=== PATIENT | male | born 1960 | race African-American/Black ===

== ENCOUNTER 2019-01-08 06:29 | Day surgery (SDC) | payer MEDICARE, OTHER ==
[~2019-01-08] VITALS: Ht 180.3 cm; Wt 128.0 kg
[2019-01-08] VITALS (12 sets, daily range): BP systolic 126–163; BP diastolic 79–93; PULSE 60–96; RESP 12–24; Ht 180.3 cm; Wt 128.0 kg
[~2019-01-08 06:29] MED LIST: CEFAZOLIN 2 GM/50 ML (PMX) 50 ML IVPB ONE; SOD CHLORIDE 0.9% 1,000 ML IV SCH
[2019-01-08] MEDS ORDERED: SEVOFLURANE 15 MIN ONE (07:00)
[2019-01-08] MEDS ORDERED: LIDOCAINE 2% (SDV) 5 ML INJ ONE (07:00)
[2019-01-08] MEDS ORDERED: SUCCINYLCHOLINE CHLORIDE 100 MG/5 ML SYG IV ONE (07:00)
[2019-01-08] MEDS ORDERED: AMLO-147 PO (07:24)
[2019-01-08] MEDS ORDERED: HYDR25TA6 PO (07:24)
[2019-01-08] MEDS ORDERED: GLIP10TA14 PO (07:24)
[2019-01-08] MEDS ORDERED: METF-849 PO (07:24)
--- NOTE | 2019-01-08 08:39 | PREAC ---
Date/Time of Note Date/Time of Note DATE: 01/08/19 TIME: 08:35 Anesthesia Eval and Record Evaluation Time Pre-Procedure Interview DATE: 01/08/19 TIME: 08:35 Age 58 Sex male NPO: 8 hrs Preoperative diagnosis Posterior Thoracic abscess Planned procedure I&D posterior thoracic abscess Past Medical History Past Medical History: Includes Cardio: HTN, Dyslipidemia Endo: Diabetes GI: Morbid obesity Surgery & Anesthesia Issues No known issue Meds Anticoagulation: No Beta Lucy within 24 hr: No Reason Beta Lucy not given: Pt. not on B-Lucy Reported Medications Glipizide* (Glipizide*) 10 Mg Tablet, 10 MG PO BID, TAB 01/08/19 Metformin* (Glucophage*) 500 Mg Tab, 500 MG PO WITH BREAKFAST DINNE, #30 TAB 01/08/19 Amlodipine Besylate* (Amlodipine Besylate*) 10 Mg Tablet, 10 MG PO DAILY, #30 TAB 01/08/19 Hydrochlorothiazide* (Hydrochlorothiazide*) 25 Mg Tab, 25 MG PO DAILY, #30 TAB 01/08/19 Current Medications Sodium Chloride 1,000 ml @ 75 mls/hr [id number] IV ; Start 01/08/19 at 06:00; Stop 01/08/19 at 19:19 Meds reviewed: Yes Allergies Coded Allergies: No Known Drug Allergies (Unverified Allergy, Unknown, 01/08/19) Allergies Reviewed: Yes Labs/Studies Labs Reviewed: Reviewed by anesthesiologist Result Diagram: 01/08/19 0714 01/08/19 0714 Laboratory Tests 01/08/19 07:14 test: N/A Studies: ECG Pre-procedure Exam Last vitals BP:136/77, P:78, spo2:100%, T:98,8 Airway: Adequate mouth opening, Adequate thyromental dist Mallampati: Mallampati III Teeth: Normal Lung: Normal Heart: Normal ASA Physical Status ASA physical status: 3 Emergency: None Planned Anesthetic General/MAC: LMA Planned Pain Management Parenteral pain med, Local by surgeon Pre-operative Attestations Prior to commencing anesthesia and surgery, the patient was re-evaluated, there was verification of: *The patient's identity *The results of appropriate recent lab work and preoperative vital signs *The above evaluation not changing prior to induction *Anesthetic plan, risk benefits, alternative and complications discussed with patient/family; questions answered; patient/family understands, accepts and wishes to proceed. FABI MAHER MD Jan 08, 2019 08:39
[2019-01-08] MEDS ORDERED: MIDAZOLAM 1 MG/ML 2 ML INJ ONE (08:42)
[2019-01-08] MEDS ORDERED: FENTAnyl 50 MCG/ML VIAL ONE (08:42)
[2019-01-08] MEDS ORDERED: LIDOCAINE 1%/EPI (1:100,000) (MDV) 20 ML ONE (09:14)
[2019-01-08] MEDS ORDERED: ONDANSETRON 4 MG INJ ONE (09:36)
[2019-01-08] MEDS ORDERED: ETOMIDATE 20 MG INJ ONE (09:36)
[2019-01-08] MEDS ORDERED: CEFAZOLIN 1 GM INJ ONE (09:36)
[2019-01-08] MEDS ORDERED: PROPOFOL 20 ML ONE (09:36)
--- NOTE | 2019-01-08 09:40 | SIPON ---
Date/Time of Note Date/Time of Note DATE: 01/08/19 TIME: 09:39 Operative Report Preoperative Diagnosis Infected cystic mass posterior thorax Postoperative Diagnosis Same Operation/Procedure Performed Excision of infected cystic mass posterior thorax Surgeon see signature line cafe assistant Dr Potts Anesthesia: general Estimated blood loss: 10 - 50 ml's Transfusion Required none Specimen Cystic mass posterior thorax Grafts/Implants none Complications none PATRICK CORONA MD Jan 08, 2019 09:40
--- NOTE | 2019-01-08 09:48 | PAC ---
Date/Time of Note Date/Time of Note DATE: 01/08/19 TIME: 09:47 Post-Anesthesia Notes Post-Anesthesia Note Last documented vital signs Vital Signs Date Temp Pulse Resp B/P (MAP) Pulse Ox O2 O2 Flow FiO2 Time Delivery Rate 01/08/19 97.3 63 18 146/86 99 Room Air 08:48 (106) Activity: WNL Respiratory function: WNL Cardiovascular function: WNL Mental status: Baseline Pain reasonably controlled: Yes Hydration appropriate: Yes Nausea/Vomiting absent: Yes Comments BP:138/56, P:74, Spo2:100%, T:98,8 FABI MAHER MD Jan 08, 2019 09:48
[2019-01-08] MEDS ORDERED: ONDANSETRON 4 MG INJ IV PRN (10:00)
[2019-01-08] MEDS ORDERED: MEPERIDINE 25 MG INJ IV PRN (10:00)
[2019-01-08] MEDS ORDERED: METOCLOPRAMIDE 10 MG INJ IV PRN (10:00)
[2019-01-08] MEDS ORDERED: hydrALAzine 20 MG INJ IV PRN (10:00)
[2019-01-08] MEDS ORDERED: LABETALOL HCL 20MG INJ IV PRN (10:00)
[2019-01-08] MEDS ORDERED: DIPHENHYDRAMINE 50 MG INJ IV PRN (10:00)
[2019-01-08] MEDS ORDERED: FENTAnyl 50 MCG/ML VIAL IV PRN (10:00)
[2019-01-08] MEDS ORDERED: HYDROmorphONE 1 MG/5 ML IV SYRINGE IV PRN ×2 (10:00)
--- NOTE | 2019-01-08 10:58 | OPR ---
DATE OF OPERATION: 01/08/2019 PREOPERATIVE DIAGNOSIS: Infected cystic mass, posterior thorax. POSTOPERATIVE DIAGNOSIS: Infected cystic mass, posterior thorax. OPERATION PERFORMED: Excision of infected cystic mass, posterior thorax. ANESTHESIA: General. ANESTHESIOLOGIST: Redd Adamson MD UPWARD BOUND DIRECTOR: Kacey Negron MD INDICATIONS FOR PROCEDURE: The patient is a 58-year-old male who presented with a chronically infect ed draining cystic mass in the midline of his posterior thorax, clinically consistent with probable e pidermal inclusion cyst. He was counseled as to the benefits of excision of the entire cyst includin g the capsule. He consented and was scheduled for surgery. DESCRIPTION OF PROCEDURE: The patient was brought to the operating theater, placed under general ane sthesia. He was then put in the lateral position with the left side up. Posterior thorax was preppe d and draped in usual sterile fashion. Approximately 5 cm incision was then made transversely direct ly over the cystic mass. The cyst was entered. Copious amounts of purulent drainage were encountere d and suctioned. The large fibrous capsule associated with the cyst was then meticulously excised wi th combination of cautery and sharp dissection. The contents were removed and sent for pathologic an alysis. The wound was irrigated with both hydrogen peroxide and Betadine. Residual bleeding was the n controlled with cautery. The area around the cyst was then infiltrated with 1% lidocaine local ane sthetic with epinephrine, and the wound was then gently packed with Betadine soaked gauze and a steri le dressing was applied. Patient tolerated procedure well. Estimated blood loss was 20 mL. There w ere no complications. The patient was transported in stable condition to the recovery room. Dictated By: PATRICK CORONA MD TL/NTS Conf#: [id number] DID#: [id number] CC: KACEY NEGRON MD;*EndCC*
== END 2019-01-08 11:00 | disposition home or self-care (01) ==
LOC: SDS 06:29
PROVIDERS: ATTEND Surgery Surgical Oncology
DX: L90.5 Scar conditions and fibrosis of skin (principal); I10 Essential (primary) hypertension; E78.5 Hyperlipidemia, unspecified; E11.9 Type 2 diabetes mellitus without complications; E66.01 Morbid (severe) obesity due to excess calories; Z68.39 Body mass index [BMI] 39.0-39.9, adult
CPT/HCPCS: 71045; 80053; 82962; 85025; 85610; 85730; 88305; 93005; J0690; J2250; J2405; J3010